=== PATIENT | female | born 1985 | race Two or more races ===

== ENCOUNTER 2016-10-20 14:17 | Outpatient (CLI) | payer MEDICAID | END 2016-10-20 23:59 | DX: Z13.9 Encounter for screening, unspecified (principal) ==

== ENCOUNTER 2016-10-27 09:17 | Outpatient (CLI) | payer MEDICAID | END 2016-10-27 09:18 | disposition home or self-care (01) | DX: R74.8 Abnormal levels of other serum enzymes (principal) ==

== ENCOUNTER 2017-12-22 07:44 | Outpatient (CLI) | payer MEDICAID ==
[2017-12-22 14:10] LABS: ALBUMIN 4.1 g/dL (3.2-5.5); BILIRUBIN,DIRECT 0.1 mg/dL (0.1-0.5); BILIRUBIN,TOTAL 0.8 mg/dL (0.2-1.0); TOTAL PROTEIN 7.5 g/dL (6.7-8.2)
== END 2017-12-22 07:45 | disposition home or self-care (01) ==
LOC: LAB.N 07:44
PROVIDERS: ATTEND Nurse Practitioner Gerontology
DX: R74.8 Abnormal levels of other serum enzymes (principal)
CPT/HCPCS: 36415; 80076

== ENCOUNTER 2019-09-10 14:17 | Emergency (ER) | payer MEDICAID ==
[2019-09-10 14:43] LABS: RAPID STREP SCREEN Negative (Negative)
--- NOTE | 2019-09-10 16:33 | ED Physician Documentation ---
PD HPI URI - Stated complaint Stated Complaint: SORE THROAT/OMAR EAR PX - Chief complaint Chief Complaint: Heent - History obtained from History obtained from: Patient - History of Present Illness Timing - onset: How many days ago (5-6) Timing details: Gradual onset, Still present (worse the past 2 days) Associated symptoms: Fever (mild), Sore throat, Swollen nodes. No: Nasal congestion, Dry cough Contributing factors: No: Sick contact, Travel, Immunocompromised Recently seen: Not recently seen Review of Systems Constitutional: reports: Fever Nose: denies: Rhinorrhea / runny nose Throat: reports: Sore throat, Swollen tonsils. denies: Oral lesions / sores Respiratory: denies: Cough PD PAST MEDICAL HISTORY - Past Medical History Past Medical History: No - Past Surgical History Past Surgical History: No - Present Medications Home Medications: Ambulatory Orders Medication Instructions Recorded Confirmed Amoxicillin 500 mg PO TID #20 capsule 09/10/19 dexAMETHasone [Decadron] 4 mg PO DAILY #5 tablet 09/10/19 - Allergies Allergies/Adverse Reactions: Allergies Allergy/AdvReac Type Severity Reaction Status Date / Time No Known Drug Allergies Allergy Verified 09/10/19 14:26 - Social History Does the pt smoke?: No Smoking Status: Never smoker Does the pt drink ETOH?: No Does the pt have substance abuse?: No - Immunizations Immunizations are current?: Yes PD ED PE NORMAL - Vitals Vital signs reviewed: Yes - General General: Alert and oriented X 3, No acute distress, Well developed/nourished - HEENT HEENT: No: Pharynx benign (redness and swelling of tonsils, with faint exudate left side. No peritonsillar edema. ) - Neck Neck: Supple, no meningeal sign, Other (anterior adenopathy) - Cardiac Cardiac: RRR, No murmur - Respiratory Respiratory: Clear bilaterally - Neuro Neuro: Alert and oriented X 3, No motor deficit, Normal speech Results - Vitals Vitals: Vital Signs - 24 hr 09/10/19 09/10/19 09/10/19 14:27 16:00 17:06 Temperature 37.2 C 36.6 C Heart Rate 103 H 69 75 Respiratory 18 18 16 Rate Blood Pressure 141/83 H 132/74 H 130/75 O2 Saturation 98 99 99 Oxygen O2 Source Room air - Labs Labs: Laboratory Tests 09/10/19 14:30 Group A Strep Rapid Negative PD MEDICAL DECISION MAKING - ED course Complexity details: considered differential (clinically suspicious for bacterial pharyngitis. ), d/w patient Departure - Departure Disposition: 01 Home, Self Care Clinical Impression: Acute pharyngitis Qualifiers: Pharyngitis/tonsillitis etiology: unspecified etiology Qualified Code(s): J02.9 - Acute pharyngitis, unspecified Condition: Stable Record reviewed to determine appropriate education?: Yes Instructions: ED Strep Pharyngitis Poss Prescriptions: Amoxicillin 500 mg PO TID #20 capsule dexAMETHasone [Decadron] 4 mg PO DAILY #5 tablet Comments: Stay well-hydrated. Ibuprofen or naproxen 2-3 times a day for fevers and pains. Decadron steroid anti-inflammatory daily for the next several days to reduce inflammation. Amoxicillin 3 times a day as directed. I would anticipate improvement over the next several days. Recheck if not improved during that time and resolved within 4 to 5 days. Discharge Date/Time: 09/10/19 17:07
[2019-09-10] MEDS ORDERED: DEXAMETHASONE 10 MG/ML VIAL PO STA (16:39)
[2019-09-10] MEDS ORDERED: CHERRY SYRUP 10 ML UDC PO ONE (16:39)
[2019-09-10] MEDS ORDERED: IBUPROFEN 600 MG TABLET PO STA (16:39)
[2019-09-10] MEDS ORDERED: AMOXICILLIN 250 MG CAPSULE PO STA (16:39)
[2019-09-10 17:07] VITALS: BP 130/75
== END 2019-09-10 17:07 | disposition home or self-care (01) ==
LOC: ED 14:17
DX: J02.9 Acute pharyngitis, unspecified (principal)
CPT/HCPCS: 87070; 87430; 99283; A9270

== ENCOUNTER 2019-11-21 07:00 | Outpatient (CLI) | payer MEDICAID ==
[2019-11-21 10:54] LABS: MUDS CUTOFF CONCENTRATIONS CUTOFF CONC BELOW:
[2019-11-21 18:12] LABS: BASOPHILS % (AUTO) 0.4 %; EOSINOPHILS # (AUTO) 0.1 10^3/uL (0.0-0.7); EOSINOPHILS % (AUTO) 1.4 %; HGB - HEMOGLOBIN 13.3 g/dL (12.0-16.0); LYMPHOCYTES # (AUTO) 2.3 10^3/uL (1.5-3.5); LYMPHOCYTES % (AUTO) 23.1 %; MEAN CORPUSCULAR HGB CONC 32.9 g/dL (32.0-36.0); MEAN CORPUSCULAR VOLUME 94.2 fL (81.0-99.0); MEAN PLATELET VOLUME 9.6 fL (7.9-10.8); MONOCYTES # (AUTO) 0.5 10^3/uL (0.0-1.0); MONOCYTES % (AUTO) 4.8 %; NEUTROPHILS # (AUTO) 6.8 10^3/uL (1.5-6.6); NEUTROPHILS % (AUTO) 69.7 %; PLT - PLATELET COUNT 329 10^3/uL (130-450); RED BLOOD COUNT 4.29 10^6/uL (4.20-5.40); RED CELL DISTRIBUTION WIDTH 13.7 % (12.0-15.0); WHITE BLOOD COUNT 9.8 x10^3/uL (4.8-10.8)
[2019-11-21 18:34] LABS: HB2 TOTAL 13.7 g/dL; HEMOGLOBIN A1C 0.47 g/dL; HEMOGLOBIN A1C % 5.3 % (4.6-6.2)
[2019-11-21 18:37] LABS: BILIRUBIN,URINE NEGATIVE (NEGATIVE); GLUCOSE, URINE (UA) NEGATIVE (NEGATIVE); KETONES,URINE (UA) NEGATIVE (NEGATIVE); LEUKOCYTE ESTERASE, URINE SMALL (NEGATIVE); NITRITE,URINE NEGATIVE (NEGATIVE); OCCULT BLOOD,URINE TRACE-INTA (NEGATIVE); PH,URINE 6.5 PH (5.0-7.5); PROTEIN,URINE NEGATIVE (NEGATIVE); UROBILINOGEN,URINE 0.2 (NORMAL) E.U./dL (NORMAL)
[2019-11-21 18:52] LABS: AMORPHOUS SEDIMENT,UR Moderate /LPF; BACTERIA,URINE Few /HPF (None Seen); CLARITY,URINE CLEAR (CLEAR); RBC,URINE 0-5 /HPF (0-5); SQUAMOUS EPITHELIAL CELL,UR MOD Squamous (<= Few)
[2019-11-21 18:56] LABS: AMPHETAMINE SCREEN,URINE NEGATIVE (NEGATIVE); BENZODIAZEPINES SCREEN, URINE NEGATIVE (NEGATIVE); COCAINE SCREEN URINE NEGATIVE (NEGATIVE); METHADONE SCREEN, URINE NEGATIVE (NEGATIVE); METHAMPHETAMINES SCREEN, URINE NEGATIVE (NEGATIVE); OPIATE SCREEN, URINE NEGATIVE (NEGATIVE); OXYCODONE SCREEN, URINE NEGATIVE (NEGATIVE); PROPOXYPHENE SCREEN, URINE NEGATIVE (NEGATIVE); TRICYCLIC ANTIDEPRESSANT,URINE NEGATIVE (NEGATIVE)
[2019-11-22 10:55] LABS: HIV AG/AB 4TH GEN NON-REACTIVE (NON-REACTIVE)
[2019-11-22 13:35] LABS: HEPATITIS B SURFACE ANTIGEN NON-REACTIVE (NON-REACTIVE)
== END 2019-11-21 23:59 | disposition home or self-care (01) ==
LOC: LAB.WCP 07:00
PROVIDERS: ATTEND Obstetrics & Gynecology
DX: Z36.89 Encounter for other specified antenatal screening (principal); Z86.32 Personal history of gestational diabetes; O09.299 Supervision of pregnancy with other poor reproductive or obstetric history, unspecified trimester
CPT/HCPCS: 36415; 80306; 81001; 81511; 81599; 82950; 83036; 84443; 85025; 86592; 86762; 86850; 86900; 86901; 87086; 87340; 87389; 87522

== ENCOUNTER 2019-12-03 14:19 | Outpatient (CLI) | payer MEDICAID ==
--- NOTE | 2019-12-03 17:14 | Ultrasound Report ---
Reason: SUPERVISION OF Procedure Date: 12/03/2019 Accession Number: [id number] / [id number] Procedure: US - OB Detailed Eval CPT Code: Final Report FULL RESULT: PROCEDURE: OB Detailed Eval INDICATIONS: SUPERVISION OF OUTSIDE/PRIOR DATING DATA: Last menstrual period (LMP): 08/05/2019. LMP-based estimated date of delivery (VIELKA): 05/11/2020. First dating scan (date and location): 12/03/2019. Estimated date of delivery (VIELKA) from first dating scan: 05/11/2020. TECHNIQUE: Real-time scanning was performed of the fetus, with image documentation and biometric measurements. COMPARISON: None. FINDINGS: General: A single living intrauterine gestation is present. Presentation: Variable Placenta: Placental position is posterior, without previa. Amniotic fluid index: Within normal limits, largest pocket measuring 5 cm . heart rate: 145 beats per minute. Maternal cervical canal: 3.7 cm long; normal length is 2.5 cm or more. biometrics: Biparietal diameter: 4 cm 18 weeks 1 day Head circumference: 15 cm 18 weeks 0 days Abdominal circumference: 12 cm 17 weeks 5 days Femur length: 2.6 cm 18 weeks 0 days Estimated gestational age from initial scan: not applicable. Composite gestational age from present scan: 18 weeks 0 days Estimated weight and percentile: 2 15 g, 88th percentile Measurement variability in biometric dating: +/- 10 days from 12-20 weeks gestation, +/- 2 weeks from 20-30 weeks gestation, +/- 3 weeks at 30 weeks gestation or later. Anatomic survey: Neuro: Suboptimally visualized. Nuchal skin fold: Normal at less than 6 mm between 14 and 20 weeks gestational age. Face: Nose and lips, facial profile are not well seen. Spine: Suboptimally visualized. Heart: 4-chambered heart and ventricular outflow tracts are not well visualized. Diaphragm: Diaphragm is intact. Stomach: Left-sided stomach is present. Kidneys: No hydronephrosis. Normal is less than 5 mm in 2nd trimester, less than 7 mm in 3rd trimester. Cord: 3 vessel cord has orthotopic insertion. Bladder: Normal in size. Extremities: All 4 extremities are visualized. IMPRESSION: 1. Single live intrauterine with ultrasound gestational age of 18 weeks 0 days corresponding to ultrasound VIELKA of 05/11/2020. 2. Suboptimal visualization of intracranial structures as well as spine, facial profile as well as 4 chambered heart and outflow tracts. Recommend interval imaging follow-up for additional evaluation. Reviewed by: Jennifer Peacock MD on 12/03/2019 5:13 PM PDT Approved by: Jennifer Peacock MD on 12/03/2019 5:13 PM PDT Station ID: [id number]
== END 2019-12-03 14:20 | disposition home or self-care (01) ==
LOC: DI 14:19
PROVIDERS: ATTEND Obstetrics & Gynecology
DX: O09.292 Supervision of pregnancy with other poor reproductive or obstetric history, second trimester (principal); Z3A.18 18 weeks gestation of pregnancy; Z86.32 Personal history of gestational diabetes
CPT/HCPCS: 76811

== ENCOUNTER 2019-12-26 11:53 | Outpatient (CLI) | payer MEDICAID ==
--- NOTE | 2019-12-26 17:04 | Ultrasound Report ---
PROCEDURE: OB F/U or Repeat INDICATIONS: MULTIGRAVIDA OUTSIDE/PRIOR DATING DATA: Last menstrual period (LMP): 08/05/2019. LMP-based estimated date of delivery (VIELKA): 05/11/2020. First dating scan (date and location): 12/03/2019. Estimated date of delivery (VIELKA) from first dating scan: 07/11/2019. TECHNIQUE: Real-time scanning was performed of the fetus, with image documentation and biometric measurements. COMPARISON: OB ultrasound 12/03/2019 FINDINGS: General: A single living intrauterine gestation is present. Presentation: Transverse Placenta: Placental position is posterior, without previa. Amniotic fluid index: 15 cm, 58 percentile for gestational age. Largest pocket 4.9 cm heart rate: 139 beats per minute. Maternal cervical canal: 4.6 cm long; normal length is 2.5 cm or more. Other: Repeat evaluation of the spine, facial profile, four-chamber heart and outflow tracts are with in normal limits. IMPRESSION: 1. Single live intrauterine with ultrasound gestational age of 20 weeks 3 days. 2. Spine, facial profile, four-chamber heart and outflow tracts are within normal limits. Reviewed by: Jennifer Peacock MD on 12/26/2019 5:03 PM PDT Approved by: Jennifer Peacock MD on 12/26/2019 5:03 PM PDT Station ID: [id number]
== END 2019-12-26 11:54 | disposition home or self-care (01) ==
LOC: DI 11:53
PROVIDERS: ATTEND Obstetrics & Gynecology
DX: Z34.80 Encounter for supervision of other normal pregnancy, unspecified trimester (principal)
CPT/HCPCS: 76816

== ENCOUNTER 2020-03-02 11:44 | Outpatient (CLI) | payer MEDICAID ==
[2020-03-02 13:22] LABS: HGB - HEMOGLOBIN 11.6 g/dL (12.0-16.0); MEAN CORPUSCULAR HEMOGLOBIN 30.2 pg (27.0-31.0); MEAN CORPUSCULAR VOLUME 91.4 fL (81.0-99.0); MEAN PLATELET VOLUME 9.3 fL (7.9-10.8); RED BLOOD COUNT 3.84 10^6/uL (4.20-5.40); RED CELL DISTRIBUTION WIDTH 13.4 % (12.0-15.0); WHITE BLOOD COUNT 9.6 x10^3/uL (4.8-10.8)
== END 2020-03-02 11:45 | disposition home or self-care (01) ==
LOC: LAB 11:44
PROVIDERS: ATTEND Obstetrics & Gynecology
DX: Z34.80 Encounter for supervision of other normal pregnancy, unspecified trimester (principal)
CPT/HCPCS: 36415; 82950; 85027

== ENCOUNTER 2020-03-05 07:56 | Outpatient (CLI) | payer MEDICAID | END 2020-03-05 07:57 | disposition home or self-care (01) | LOC: LAB 07:56 | PROVIDERS: ATTEND Obstetrics & Gynecology | DX: O99.810 Abnormal glucose complicating pregnancy (principal) | CPT/HCPCS: 36415; 82951; 82952 ==

== ENCOUNTER 2020-04-01 11:48 | Outpatient (CLI) | payer MEDICAID ==
[2020-04-01 13:13] VITALS: BP 132/73
--- NOTE | 2020-04-01 18:05 | PROCEDURE REPORT ---
- HPI Diagnosis/Indication for NST: Gestational Diabetes Current EDU 05/11/20 Gestation 34 Weeks and 2 Days 5 Para 4 Vital Signs Temperature 98.2 F 04/01/20 13:10 Heart Rate 85 04/01/20 13:10 Respiratory Rate 16 04/01/20 13:10 Blood Pressure 132/73 H 04/01/20 13:10 O2 Saturation 97 04/01/20 13:10 Temperature 98.2 F 04/01/20 13:10 Heart Rate 85 04/01/20 13:10 Respiratory Rate 16 04/01/20 13:10 Blood Pressure 132/73 H 04/01/20 13:10 O2 Saturation 97 04/01/20 13:10 - NST Procedure NST Procedure Start Date 04/01/20 Start Time 12:00 Stop Time 13:09 Vibroacoustic Stimulation Used No Patient States Movement Yes - Results and Plan Findings/Impression: Category 1 NST [place] neg Continue surveillance
== END 2020-04-01 13:20 | disposition home or self-care (01) ==
LOC: WFO 11:48 → FBP 11:54 → WFO 13:20
PROVIDERS: ATTEND Obstetrics & Gynecology
DX: O24.419 Gestational diabetes mellitus in pregnancy, unspecified control (principal); Z3A.34 34 weeks gestation of pregnancy
CPT/HCPCS: 59025

== ENCOUNTER 2020-04-09 14:28 | Outpatient (CLI) | payer MEDICAID ==
[2020-04-09 15:08] VITALS: BP 146/108
--- NOTE | 2020-04-19 10:52 | PROCEDURE REPORT ---
- HPI Diagnosis/Indication for NST: Gestational Diabetes Current EDU 05/11/20 Gestation 35 Weeks and 3 Days 5 Para 4 Vital Signs Temperature 99.0 F 04/09/20 14:42 Heart Rate 102 H 04/09/20 14:42 Respiratory Rate 18 04/09/20 14:42 Blood Pressure 134/81 H 04/09/20 14:42 O2 Saturation 100 04/09/20 14:42 Temperature 99.0 F 04/09/20 14:42 Heart Rate 88 04/09/20 15:00 Respiratory Rate 18 04/09/20 14:42 Blood Pressure 146/108 H 04/09/20 15:01 O2 Saturation 100 04/09/20 14:42 - NST Procedure NST Procedure Start Date 04/09/20 Start Time 14:39 Stop Time 15:40 Vibroacoustic Stimulation Used No Patient States Movement Yes EFM 135 mod ana 15x15 accels no decels TOCO: quiet - Results and Plan Findings/Impression: 34 yo at 35+2 wga with GDM here for NST Cat I tracing Cont with twice weekly NST and weekly FARTUN Not informed of elevated blood pressures priorto DC Normal BPs in clinic to date Will fu with patient Cont with twice weekly NST and weekly FARTUN
== END 2020-04-09 17:30 | disposition home or self-care (01) ==
LOC: WFO 14:28 → FBP 14:31 → WFO 17:30
PROVIDERS: ATTEND Obstetrics & Gynecology
DX: O24.419 Gestational diabetes mellitus in pregnancy, unspecified control (principal); Z3A.35 35 weeks gestation of pregnancy

== ENCOUNTER 2020-04-10 17:33 | Outpatient (CLI) | payer MEDICAID ==
--- NOTE | 2020-04-10 18:49 | Ultrasound Report ---
PROCEDURE: OB F/U or Repeat INDICATIONS: GESTATIONAL DIABETES OUTSIDE/PRIOR DATING DATA: Last menstrual period (LMP): 08/05/2019. LMP-based estimated date of delivery (VIELKA): 05/11/2020. First dating scan (date and location): OB ultrasound dated 12/03/2019. Estimated date of delivery (VIELKA) from first dating scan: 05/11/2020. TECHNIQUE: Real-time scanning was performed of the fetus, with image documentation and biometric measurements. Endovaginal scanning: Not performed COMPARISON: None. FINDINGS: General: A single living intrauterine gestation is present. Presentation: Vertex Placenta: Placental position is posterior, without previa. Amniotic fluid index: 8.6 cm, 7.7% for gestational age. heart rate: 163 beats per minute. Maternal cervical canal: Not well characterized. biometrics: Biparietal diameter: 8.6 cm, 34 weeks, 6 days Head circumference: 31.8 cm, 35 weeks 5 days Abdominal circumference: 31.3 cm, 35 weeks 2 days Femur length: 6.6 cm, 34 weeks 0 days Estimated gestational age from initial scan: 35 weeks, 4 days Composite gestational age from present scan: 35 weeks, 0 days Estimated weight and percentile: 2544 g, 30.5 percentile Measurement variability in biometric dating: +/- 10 days from 12-20 weeks gestation, +/- 2 weeks from 20-30 weeks gestation, +/- 3 weeks at 30 weeks gestation or more. Other: The chest/diaphragm, stomach/abdomen, bilateral renal regions, and the urinary bladder have a normal sonographic appearance. IMPRESSION: 1. Single live intrauterine gestation with a composite gestational age of 35 weeks, 0 days which is c oncordant with dates by initial scan. 2. Normal sonographic anatomy of the chest/diaphragm, stomach/abdomen, bilateral renal regions, and urinary bladder. Reviewed by: Dorita Barajas MD on 04/10/2020 6:48 PM PDT Approved by: Dorita Barajas MD on 04/10/2020 6:48 PM PDT Station ID: [id number]
== END 2020-04-10 17:34 | disposition home or self-care (01) ==
LOC: DI 17:33
PROVIDERS: ATTEND Obstetrics & Gynecology
DX: O24.419 Gestational diabetes mellitus in pregnancy, unspecified control (principal); Z3A.35 35 weeks gestation of pregnancy
CPT/HCPCS: 76816

== ENCOUNTER 2020-04-13 16:51 | Outpatient (CLI) | payer MEDICAID ==
[2020-04-13 18:23] VITALS: BP 129/86
--- NOTE | 2020-04-19 11:27 | PROCEDURE REPORT ---
- HPI Diagnosis/Indication for NST: Gestational Diabetes Current EDU 05/11/20 Gestation 36 Weeks and 0 Days 5 Para 4 Vital Signs Temperature 99.0 F 04/13/20 17:00 Heart Rate 91 04/13/20 17:00 Respiratory Rate 17 04/13/20 17:00 Blood Pressure 129/86 H 04/13/20 17:00 Temperature 99.0 F 04/13/20 17:00 Heart Rate 91 04/13/20 17:00 Respiratory Rate 17 04/13/20 17:00 Blood Pressure 129/86 H 04/13/20 17:00 O2 Saturation - NST Procedure NST Procedure Start Date 04/13/20 Start Time 17:00 Stop Time 15:40 Vibroacoustic Stimulation Used No Patient States Movement Yes EFM 135 mod ana 15x15 accels no decel TOCO: Q4-5; mild - Results and Plan Findings/Impression: 34 yo at 36+0 wga with complicated by GDM here for NST Cat I tracing [place] with CTX; patient not feeling them Cont with twice weekyl NST and weekly FARTUN IOL at 39 wga
== END 2020-04-13 17:43 | disposition home or self-care (01) ==
LOC: WFO 16:51 → FBP 16:55 → WFO 17:43
PROVIDERS: ATTEND Obstetrics & Gynecology
DX: O24.419 Gestational diabetes mellitus in pregnancy, unspecified control (principal); Z3A.36 36 weeks gestation of pregnancy
CPT/HCPCS: 59025

== ENCOUNTER 2020-04-16 08:00 | Outpatient (CLI) | payer MEDICAID | END 2020-04-16 23:59 | disposition home or self-care (01) | LOC: LAB.R 08:00 | PROVIDERS: ATTEND Obstetrics & Gynecology | DX: Z36.85 Encounter for antenatal screening for Streptococcus B (principal) | CPT/HCPCS: 87797 ==

== ENCOUNTER 2020-04-16 14:46 | Outpatient (CLI) | payer MEDICAID ==
--- NOTE | 2020-04-16 21:51 | Ultrasound Report ---
PROCEDURE: OB Biophysical Profile INDICATIONS: GESTATIONAL DM OUTSIDE/PRIOR DATING DATA: Last menstrual period (LMP): 08/05/2019. LMP-based estimated date of delivery (VIELKA): 05/11/2020. First dating scan (date and location): 12/03/2019. Estimated date of delivery (VIELKA) from first dating scan: 05/11/2020. TECHNIQUE: Real-time scanning was performed of the fetus, with image documentation and biometric charis surements. Biophysical profile was also obtained. Endovaginal scanning: Not performed COMPARISON: 04/10/2020. FINDINGS: General: A single living intrauterine gestation is present. Presentation: Cephalic Placenta: Placental position is posterior, without previa. Amniotic fluid index: 11.1 cm, normal for gestational age. heart rate: 175 beats per minute. Maternal cervical canal: Not well seen; normal length is 2.5 cm or more. Estimated gestational age from initial scan: 36 weeks 3 days Measurement variability in biometric dating: +/- 10 days from 12-20 weeks gestation, +/- 2 weeks from 20-30 weeks gestation, +/- 3 weeks at 30 weeks gestation or later. Biophysical profile: Tone: 2 points. Movement: 2 points. Respiration: 2 points. Largest pocket of fluid: 2 points. Umbilical artery Doppler: S/D ratio measures up to 3 at placenta level, 2.9 at mid umbilical artery, and up to 4 at the level of abdomen which is at the upper limits of normal. IMPRESSION: 1. Single live intrauterine with fetus in vertex presentation. Normal amount of amniotic fl uid on the current study with FARTUN measures 11.1 cm. heart rate is elevated at 1 75 bpm. 2. biophysical profile score is 8 out of 8. 3. Borderline elevated umbilical artery S/D ratio as above. Reviewed by: Cuba Tafoya MD on 04/16/2020 9:49 PM PDT Approved by: Cuba Tafoya MD on 04/16/2020 9:49 PM PDT Station ID: [id number]
== END 2020-04-16 14:47 | disposition home or self-care (01) ==
LOC: DI 14:46
PROVIDERS: ATTEND Obstetrics & Gynecology
DX: O24.414 Gestational diabetes mellitus in pregnancy, insulin controlled (principal); Z3A.36 36 weeks gestation of pregnancy
CPT/HCPCS: 76819

== ENCOUNTER 2020-04-16 16:22 | Outpatient (CLI) | payer MEDICAID ==
[2020-04-16 17:15] VITALS: BP 135/73
--- NOTE | 2020-04-19 11:24 | PROCEDURE REPORT ---
- HPI Diagnosis/Indication for NST: Gestational Diabetes Current EDU 05/11/20 Gestation 36 Weeks and 3 Days 5 Para 4 Vital Signs Temperature 98.2 F 04/16/20 17:11 Heart Rate 99 04/16/20 17:11 Respiratory Rate 20 04/16/20 17:11 Blood Pressure 135/73 H 04/16/20 17:11 Temperature 98.2 F 04/16/20 17:11 Heart Rate 99 04/16/20 17:11 Respiratory Rate 04/16/20 17:11 Blood Pressure 135/73 H 04/16/20 17:11 O2 Saturation - NST Procedure NST Procedure Start Date 04/16/20 Start Time 16:33 Stop Time 16:58 Vibroacoustic Stimulation Used No Patient States Movement Yes EFM 135 mod ana 15x15 accels no decels TOCO: intermittent - Results and Plan Findings/Impression: Patient is a 34 yo at 36+3 wga with complicated by GDM here for NST CAT I tracing Cont with twice weekly NST and weekly FARTUN IOL at 39 wga
== END 2020-04-16 17:21 | disposition home or self-care (01) ==
LOC: WFO 16:22 → FBP 16:25 → WFO 17:21
PROVIDERS: ATTEND Obstetrics & Gynecology
DX: O24.414 Gestational diabetes mellitus in pregnancy, insulin controlled (principal); Z3A.36 36 weeks gestation of pregnancy
CPT/HCPCS: 59025; 76819; 87797

== ENCOUNTER 2020-04-23 12:36 | Outpatient (CLI) | payer MEDICAID ==
--- NOTE | 2020-04-23 16:17 | Ultrasound Report ---
PROCEDURE: OB Biophysical Profile INDICATIONS: GESTATIONAL DIABETES OUTSIDE/PRIOR DATING DATA: Last menstrual period (LMP): 08/05/2019. LMP-based estimated date of delivery (VIELKA): 05/11/2020. First dating scan (date and location): 12/03/2019. Estimated date of delivery (VIELKA) from first dating scan: 05/11/2020. TECHNIQUE: Real-time scanning was performed of the fetus, with image documentation and biometric charis surements. Biophysical profile was also obtained. Endovaginal scanning: Not performed COMPARISON: 04/16/2020 FINDINGS: General: A single living intrauterine gestation is present. Presentation: Vertex Placenta: Placental position is posterior, without previa. Amniotic fluid index: 11.2 cm, 27th percentile for gestational age. heart rate: 140 beats per minute. Maternal cervical canal: Not able to be measured secondary to advanced gestational age and pos itioning. The internal cervical os appears closed. Visualized portions of the chest, diaphragm, stomach, abdomen, kidneys, and urinary bladder blair ear unremarkable. Biophysical profile: Tone: 2 points. Movement: 2 points. Respiration: 2 points. Largest pocket of fluid: 2 points. (Largest vertical pocket measured 4.5 cm) Umbilical artery Doppler: S/D ratio measured 2.6 at the placenta, 2.5 at the mid cord, and 2.3 at th e abdominal cord insertion. Normal Doppler waveforms. IMPRESSION: Single living intrauterine gestation with estimated gestational age of approximately 37 weeks and 3 d ays. Interval growth has occurred. Biophysical profile score of 8 out of 8. Largest vertical fluid pocket measured 4.5 cm. Normal S/D ratios for gestational age with normal cord Doppler waveforms. Reviewed by: Rodrigo Lam MD on 04/23/2020 4:16 PM PDT Approved by: Rodrigo Lam MD on 04/23/2020 4:16 PM PDT Station ID: [id number]
== END 2020-04-23 12:37 | disposition home or self-care (01) ==
LOC: DI 12:36
PROVIDERS: ATTEND Obstetrics & Gynecology
DX: O24.414 Gestational diabetes mellitus in pregnancy, insulin controlled (principal); Z3A.37 37 weeks gestation of pregnancy
CPT/HCPCS: 76819

== ENCOUNTER 2020-04-23 13:31 | Outpatient (CLI) | payer MEDICAID ==
[2020-04-23 16:49] VITALS: BP 127/82
--- NOTE | 2020-04-23 19:15 | PROCEDURE REPORT ---
- HPI Diagnosis/Indication for NST: Gestational Diabetes Current EDU 05/11/20 Gestation 37 Weeks and 3 Days 5 Para 4 Vital Signs Temperature 99.1 F 04/23/20 15:00 Heart Rate 73 04/23/20 15:00 Respiratory Rate 18 04/23/20 15:00 Blood Pressure 127/82 H 04/23/20 15:00 Temperature 99.1 F 04/23/20 15:00 Heart Rate 73 04/23/20 15:00 Respiratory Rate 18 04/23/20 15:00 Blood Pressure 127/82 H 04/23/20 15:00 O2 Saturation - NST Procedure NST Procedure Start Date 04/23/20 Start Time 13:49 Stop Time 14:15 Vibroacoustic Stimulation Used No Patient States Movement Yes EFM 135 mod ana 15x15 accels no decels TOCO: Q8 min Cat I tracing - Results and Plan Findings/Impression: 34 yo at 37+3 wga with affected by GDM here for NST Had been checked in clinic and was 4cm but no active labor NST Cat I Repeat SVE 4; unchanged from prior exam Warning signs reviewed Discharged to home
== END 2020-04-23 16:10 | disposition home or self-care (01) ==
LOC: WFO 13:31 → FBP 13:33 → WFO 16:10
PROVIDERS: ATTEND Obstetrics & Gynecology
DX: O24.419 Gestational diabetes mellitus in pregnancy, unspecified control (principal); Z3A.37 37 weeks gestation of pregnancy
CPT/HCPCS: 59025; 99211; 99213

== ENCOUNTER 2020-04-25 01:26 | Outpatient (CLI) | payer MEDICAID | END 2020-04-25 01:27 | disposition critical access hospital (66) | LOC: EMS 01:26 | PROVIDERS: ATTEND Surgery | DX: O99.891 Other specified diseases and conditions complicating pregnancy (principal); M54.5 Low back pain; Z3A.36 36 weeks gestation of pregnancy | CPT/HCPCS: A0425; A0429; A0999 ==

== ENCOUNTER 2020-04-25 01:48 | Inpatient (IN) | payer MEDICAID ==
[2020-04-25] MEDS ORDERED: OXYTOCIN 10 UNIT/ML VIAL IM ONE (02:05)
[2020-04-25] MEDS ORDERED: OXYTOCIN/SODIUM CHLORIDE 500 ML IV PRN (02:10)
[2020-04-25] MEDS ORDERED: miSOPROStoL 200 MCG TABLET ONE (02:12)
[2020-04-25] MEDS ORDERED: OXYTOCIN/SODIUM CHLORIDE 500 ML IV ONE (02:12)
[2020-04-25] MEDS ORDERED: OXYTOCIN 10 UNIT/ML VIAL ONE (02:12)
[2020-04-25] MEDS ORDERED: diphenhydrAMINE 25 MG CAPSULE PO PRN (02:29)
--- NOTE | 2020-04-25 02:34 | DELIVERY NOTE ---
Delivery Note - Labor Labor: positive: Spontaneous - Delivery Method Delivery Method: positive: Spontaneous vaginal delivery - Presentation Presentation: positive: Vertex, FERDINAND - right occiput anterior - Nuchal Cord Nuchal Cord: positive: None (BANDOLEAR) - Amniotic Fluid Description Amniotic Fluid Description: positive: Clear - Episiotomy Type Episiotomy Type: positive: None - Laceration Laceration: positive: None - Delivery Outcome Delivery Outcome: positive: Livebirth - [place] : positive: Placed in direct skin contact with mother, Bulb syringe, Stimulated [place] sex: positive: Male : APGARS 9/9 - Cord Cord: positive: 3 vessels - Placenta Placenta: positive: Intact, Spontaneous - Post Delivery Events Post Delivery Events: positive: No post delivery events
[2020-04-25 02:42] LABS: BASOPHILS % (AUTO) 0.3 %; EOSINOPHILS # (AUTO) 0.1 10^3/uL (0.0-0.7); EOSINOPHILS % (AUTO) 0.6 %; HGB - HEMOGLOBIN 13.4 g/dL (12.0-16.0); LYMPHOCYTES # (AUTO) 4.8 10^3/uL (1.5-3.5); MEAN CORPUSCULAR HEMOGLOBIN 28.7 pg (27.0-31.0); MEAN CORPUSCULAR HGB CONC 33.1 g/dL (32.0-36.0); MEAN CORPUSCULAR VOLUME 86.7 fL (81.0-99.0); MEAN PLATELET VOLUME 10.2 fL (7.9-10.8); MONOCYTES # (AUTO) 0.7 10^3/uL (0.0-1.0); MONOCYTES % (AUTO) 5.4 %; NEUTROPHILS # (AUTO) 7.6 10^3/uL (1.5-6.6); NEUTROPHILS % (AUTO) 57.2 %; PLT - PLATELET COUNT 317 10^3/uL (130-450); RED BLOOD COUNT 4.67 10^6/uL (4.20-5.40); RED CELL DISTRIBUTION WIDTH 14.6 % (12.0-15.0); WHITE BLOOD COUNT 13.2 x10^3/uL (4.8-10.8)
--- NOTE | 2020-04-25 02:58 | DELIVERY NOTE ---
Delivery Note - Labor Labor: positive: Spontaneous - Delivery Method Delivery Method: positive: Spontaneous vaginal delivery - Presentation Presentation: positive: Vertex, FERDINAND - right occiput anterior - Nuchal Cord Nuchal Cord: positive: None (Bandolear) - Amniotic Fluid Description Amniotic Fluid Description: positive: Clear - Episiotomy Type Episiotomy Type: positive: None - Laceration Laceration: positive: None - Delivery Outcome Delivery Outcome: positive: Livebirth - [place] : positive: Placed in direct skin contact with mother, Bulb syringe, Stimulated [place] sex: positive: Male : Apgars 9/9 - Cord Cord: positive: 2 vessels - Placenta Placenta: positive: Intact, Spontaneous - Estimated Blood Loss Estimated Blood Loss (in cc): 200 - Post Delivery Events Post Delivery Events: positive: No post delivery events - Delivery Comments (Free Text/Narrative) Delivery Comments (Free Text/Narrative): Pt awakened at 0100 with labor. ambulance summoned and she arrived at the hospital at 0143. I was called at home at 0146. Pt SROMed with clear fluid at 0200. Pt delivered by nurse at 0202. Live male with apgars of 9/9. I delivered the placenta at 0208. it was inspected and noted to be intact. She was intact without lacerations. EBL was 200 ml.
[2020-04-25] MEDS: IBUPROFEN 800 MG TABLET PO SCH ×4 (03:00→23:02)
[2020-04-25] MEDS: ACETAMINOPHEN 500 MG TABLET PO SCH ×3 (03:01→19:46)
--- NOTE | 2020-04-25 04:32 | PREOP HISTORY & PHYSICAL ---
DATE OF SERVICE: 04/25/2020 Physician: Tc Fernandez MD IDENTIFICATION: The patient is a 34-year-old G5, P4 female whose due date was determined to be 05/11. This makes her 37 weeks 5 days. CHIEF COMPLAINT: Active labor. HISTORY OF PRESENT ILLNESS: The patient developed strong uterine contractions at 0100 this morning. She called an ambulance to bring her to the hospital and arrived here at 0143. She was checked at 0 150, at which time she was noted to be 10, 100%, and 0 station. She spontaneously ruptured her membr anes at 0200 and at 0202, delivered a live male infant with Apgars 9 and 9 over an intact perineum. The placenta followed at 0208. It was inspected and felt to be intact. PAST MEDICAL HISTORY: The patient started her OB care at 15 weeks EGA. Of note was the fact that cassidy barney had gestational diabetes with her last . Her STI check was noted to be negative. Her 50 gram Glucola was noted to be 155 and she failed her 3-hour GTT also. She was placed on metformin for control. The remainder of her labs were negative for any STIs. She was noted to be O positive. PAST MEDICAL HISTORY: Gestational diabetes. PAST SURGICAL HISTORY: None. HABITS: The patient denies use of alcohol, tobacco or street or addictive drugs. 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 FAMILY HISTORY: Unremarkable. PHYSICAL EXAMINATION HEENT: Pupils are equal, round. Extraocular muscles are intact. NECK: Thyroid is not palpably enlarged. HEART: Regular rate and rhythm without murmurs. LUNGS: Lung mcbride are clear. GENITORECTAL: The patient is just status post delivery. Her perineum shows no lacerations and there is no active bleeding. IMPRESSION 1. A 34-year-old 5, para 4 with history of rapid labors. 2. Spontaneous vaginal delivery. 3. Gestational diabetes, which was well controlled on oral agents. PLAN: We will take care of the patient in the period. She is noted to be group B positiv e; therefore, the infant will need to stay for 2 days. TD: 04/25/2020 03:04
[2020-04-25] MEDS: oxyCODONE 5 MG TABLET PO PRN ×3 (07:44→23:04)
[2020-04-25] MEDS: LACTATED RINGERS 1,000 ML IV SCH ×2 (09:45→15:41)
[2020-04-25] MEDS: DOCUSATE SODIUM 100 MG CAPSULE PO SCH ×2 (10:30→19:46)
[2020-04-26] MEDS: oxyCODONE 5 MG TABLET PO PRN ×5 (02:46→21:19)
[2020-04-26] MEDS: ACETAMINOPHEN 500 MG TABLET PO SCH ×3 (04:57→21:18)
[2020-04-26] MEDS: IBUPROFEN 800 MG TABLET PO SCH ×4 (04:57→23:31)
[2020-04-26] MEDS: DOCUSATE SODIUM 100 MG CAPSULE PO SCH ×2 (08:23→21:19)
--- NOTE | 2020-04-26 11:33 | PROVIDER PROGRESS NOTE ---
Subjective - Prog Note Date Prog Note Date: 04/26/20 Prog Note Time: 11:31 - Subjective Pt reports feeling: Worse (Pain 4-8/10. worse with moving and breast feeding. Pt is smileing and moving well) Objective - Vital Signs/Intake & Output Reviewed Vital Signs: Yes Vital Signs: Vital Signs x48h Temp Pulse Resp BP BP Pulse Ox 04/26/20 08:45 36.8 C 99 17 134/81 H 100 04/26/20 04:52 37.2 C 72 14 115/66 98 Intake & Output: Intake & Output 04/23/20 04/24/20 04/25/20 04/26/20 23:59 23:59 23:59 23:59 Intake Total 500 Balance 500 - Objective General Appearance: positive: Alert, Mild distress (right lower quadrent pain and tenderness no rebound) Extremities: positive: Calf tenderness, Michelle's sign/cords Neurologic/Psychiatric: positive: Oriented x3 - Lab Results Fish Bones: 04/25/20 02:00 Assessment/Plan - Problem List (1) (spontaneous vaginal delivery) Impression: Pt had perciptious delivery. C/o right lower quadrent pain and tenderness responding to pain medication
[2020-04-27] MEDS: oxyCODONE 5 MG TABLET PO PRN ×2 (02:49→09:29)
[2020-04-27] MEDS: IBUPROFEN 800 MG TABLET PO SCH (05:16)
[2020-04-27] MEDS: ACETAMINOPHEN 500 MG TABLET PO SCH (05:17)
[2020-04-27] MEDS ORDERED: MEASLES,MUMPS & RUBELLA VACC 0.5 ML VIAL SUBQ ONE (08:15)
--- NOTE | 2020-04-27 08:47 | PROVIDER PROGRESS NOTE ---
Subjective - Prog Note Date Prog Note Date: 04/27/20 Prog Note Time: 08:45 - Subjective Pt reports feeling: Improved (Pain in the right lowert quadrent. worse with motion. comes and goes. breast feeding.) Objective - Vital Signs/Intake & Output Reviewed Vital Signs: Yes Intake & Output: Intake & Output 04/24/20 04/25/20 04/26/20 04/27/20 23:59 23:59 23:59 23:59 Intake Total 500 Balance 500 - Objective General Appearance: positive: No acute distress, Alert Abdomen: positive: Non-tender, Tenderness (right round ligamend) Extremities: negative: Calf tenderness, Michelle's sign/cords - Lab Results Fish Bones: 04/25/20 02:00 Assessment/Plan - Problem List (1) (spontaneous vaginal delivery) Impression: excellent progress Send home. Discharge meds: Oxycodone 5mg #10 Motrin home supply RTC 1 week
--- NOTE | 2020-04-27 08:50 | Discharge Plan ---
Discharge Plan Problem Reviewed?: Yes Disposition: Home, Self Care Condition: Good Diet: Regular Shower Restrictions: No Driving Restrictions: Yes (not while taking narcotics) Weight Bearing: Full Weight No Smoking: If you smoke, Please STOP! Call for help.
[2020-04-27 09:29] VITALS: BP 125/66
[2020-04-27] MEDS: DOCUSATE SODIUM 100 MG CAPSULE PO SCH (09:29)
--- NOTE | 2020-04-27 13:55 | Labor Flowsheet ---
Labor Flowsheet Datetime Report Generated by CPN: 04/27/2020 13:55 Datetime: 04/27/2020 09:28 VITAL SIGNS NBP Sys/Emerald/Mean (mmHg): 125 : 66 : 79 Pulse: 94 COMMUNICATION LaborFlag: Labor Datetime: 04/27/2020 09:25 SpO2 (%): 99
--- NOTE | 2020-04-29 22:59 | DISCHARGE SUMMARY ---
Physician: Tc Fernandez MD DATE OF ADMISSION: 04/25/2020 DATE OF DISCHARGE: 04/27/2020 ADMITTING DIAGNOSES 1. A 34-year-old G5, P4 at 37.5 weeks. 2. Precipitous delivery. 3. Gestational diabetes. DISCHARGE DIAGNOSES 1. A 34-year-old G5, P4 at 37.5 weeks. 2. Precipitous delivery. 3. Gestational diabetes. PROCEDURES: Precipitous vaginal delivery. PRESENTING HISTORY: The patient is a 34-year-old G5, P4 female who is 37 weeks 5 days determined by early ultrasound. The evening of delivery, at 0100 hours, she developed strong uterine contractions. She summoned an ambulance and was brought to the hospital at 0143 hours. She was checked at 0150 hours, at which time she was complete, complete and 0 station. The doctor was summoned immediately and she spontaneously ruptured at 0200 hours. At 0202 hours, she delivered a live male , Apgars 9 and 9 over intact perineum. The physician arrived soon thereafter and delivered the placenta. Past medical history is positive for an elevated 50 gram Glucola at 155. She also followed with a 3-hour GTT. She was placed on metformin for control. LABORATORIES: CBC at time of delivery showed a white count of 13.0, hemoglobin was 13.4, hematocrit was 40.5, platelets were 317. She had point of care blood sugar test, which was 112. HOSPITAL COURSE: The patient presented to labor and delivery and delivered very soon after arrival. The physician arrived after delivery of the , but was there ready for the placenta. Her course was unremarkable. Her blood sugars remained normal. She was discharged to home on 04/27/2020. Discharge medications were oxycodone 5 mg #10. She had Motrin at home supply, as well as stool softener. She was instructed to follow up in the clinic in one week. Cautioned regarding mastitis, uterine infection. TD: 04/29/2020 15:23 EFRA
== END 2020-04-27 10:40 | disposition home or self-care (01) | DRG 807 ==
LOC: FBP 01:48 → WFO 01:48 → FBP 01:58
PROVIDERS: ADMIT Obstetrics & Gynecology; ATTEND Obstetrics & Gynecology
PROC: 10E0XZZ Delivery of Products of Conception, External Approach (ICD-10-PCS; principal; 2020-04-25)
DX: O24.425 Gestational diabetes mellitus in childbirth, controlled by oral hypoglycemic drugs (principal); Z37.0 Single live birth; O62.3 Precipitate labor; O69.89X0 Labor and delivery complicated by other cord complications, not applicable or unspecified; Z3A.37 37 weeks gestation of pregnancy
CPT/HCPCS: 85025; 86850; 86900; 86901; 99213; A9270

== ENCOUNTER 2020-07-13 08:27 | Outpatient (CLI) | payer MEDICAID | END 2020-07-13 08:28 | disposition home or self-care (01) | LOC: LAB 08:27 | PROVIDERS: ATTEND Obstetrics & Gynecology | DX: L28.2 Other prurigo (principal); O90.89 Other complications of the puerperium, not elsewhere classified | CPT/HCPCS: 36415; 82951 ==

== ENCOUNTER 2022-07-28 07:27 | Outpatient (CLI) | payer MEDICAID ==
[2022-07-28 11:53] LABS: BASOPHILS % (AUTO) 0.3 %; EOSINOPHILS # (AUTO) 0.1 10^3/uL (0.0-0.7); EOSINOPHILS % (AUTO) 0.8 %; HGB - HEMOGLOBIN 14.5 g/dL (12.0-16.0); LYMPHOCYTES # (AUTO) 2.7 10^3/uL (1.5-3.5); LYMPHOCYTES % (AUTO) 31.7 %; MEAN PLATELET VOLUME 9.7 fL (7.9-10.8); MONOCYTES # (AUTO) 0.4 10^3/uL (0.0-1.0); MONOCYTES % (AUTO) 4.8 %; NEUTROPHILS # (AUTO) 5.3 10^3/uL (1.5-6.6); NEUTROPHILS % (AUTO) 62.2 %; PLT - PLATELET COUNT 290 10^3/uL (130-450); RED BLOOD COUNT 4.68 10^6/uL (4.20-5.40); RED CELL DISTRIBUTION WIDTH 13.9 % (12.0-15.0); WHITE BLOOD COUNT 8.6 x10^3/uL (4.8-10.8)
[2022-07-28 12:14] LABS: ALBUMIN 4.3 g/dL (3.2-5.5); ALBUMIN/GLOBULIN RATIO 1.3 (1.0-2.2); BILIRUBIN,TOTAL 1.1 mg/dL (0.2-1.0); CALCIUM 8.8 mg/dL (8.5-10.3); CREATININE 0.7 mg/dL (0.4-1.0); POTASSIUM 3.7 mmol/L (3.5-5.0); TOTAL PROTEIN 7.7 g/dL (6.7-8.2)
== END 2022-07-28 07:28 | disposition home or self-care (01) ==
LOC: LAB.N 07:27
PROVIDERS: ATTEND Physician Assistant
DX: B35.1 Tinea unguium (principal); Z79.899 Other long term (current) drug therapy
CPT/HCPCS: 36415; 80053; 85025

== ENCOUNTER 2023-08-09 11:35 | Outpatient (CLI) | payer MEDICAID ==
[2023-08-09 17:44] LABS: BASOPHILS # (AUTO) 0.1 10^3/uL (0.0-0.1); BASOPHILS % (AUTO) 0.8 %; EOSINOPHILS # (AUTO) 0.1 10^3/uL (0.0-0.7); EOSINOPHILS % (AUTO) 1.7 %; HCT - HEMATOCRIT 47.2 % (37.0-47.0); HGB - HEMOGLOBIN 15.4 g/dL (12.0-16.0); LYMPHOCYTES # (AUTO) 2.8 10^3/uL (1.5-3.5); LYMPHOCYTES % (AUTO) 41.9 %; MEAN CORPUSCULAR HGB CONC 32.6 g/dL (32.0-36.0); MEAN PLATELET VOLUME 9.6 fL (7.9-10.8); MONOCYTES # (AUTO) 0.4 10^3/uL (0.0-1.0); MONOCYTES % (AUTO) 5.5 %; NEUTROPHILS # (AUTO) 3.3 10^3/uL (1.5-6.6); NEUTROPHILS % (AUTO) 49.9 %; PLT - PLATELET COUNT 362 10^3/uL (130-450); RED BLOOD COUNT 4.97 10^6/uL (4.20-5.40); RED CELL DISTRIBUTION WIDTH 13.2 % (12.0-15.0); WHITE BLOOD COUNT 6.6 x10^3/uL (4.8-10.8)
[2023-08-09 18:29] LABS: ALBUMIN 4.6 g/dL (3.2-5.5); ALBUMIN/GLOBULIN RATIO 1.4 (1.0-2.2); ALKALINE PHOSPHATASE 48 IU/L (42-121); ALT ALANINE AMINOTRANSFERASE 27 IU/L (10-60); AST ASPARTATE AMINOTRANSFERASE 23 IU/L (10-42); BILIRUBIN,TOTAL 0.7 mg/dL (0.2-1.0); BUN - BLOOD UREA NITROGEN 9 mg/dL (6-20); CALCIUM 9.4 mg/dL (8.5-10.3); CARBON DIOXIDE - CO2 25 mmol/L (21-32); CHLORIDE 105 mmol/L (101-111); CHOL/HDL RATIO 4.2 (<4.4); CHOLESTEROL 221 mg/dL; CREATININE 0.6 mg/dL (0.6-1.3); GFR - MDRD 112 (>89); GLUCOSE 80 mg/dL (74-104); HDL CHOLESTEROL 53 mg/dL; LDL CHOLESTEROL,CALCULATED 141 mg/dL; LDL/HDL RATIO 2.7 (<4.4); POTASSIUM 3.9 mmol/L (3.5-4.5); SODIUM 137 mmol/L (135-145); TOTAL PROTEIN 7.9 g/dL (6.4-8.9); TRIGLYCERIDES 137 mg/dL (48-352); VLDL CHOLESTEROL 27 mg/dL
[2023-08-09 18:43] LABS: THYROID STIMULATING HORMONE 1.14 uIU/mL (0.34-5.60)
== END 2023-08-09 11:36 | disposition home or self-care (01) ==
LOC: LAB.N 11:35
PROVIDERS: ATTEND Physician Assistant
DX: E78.5 Hyperlipidemia, unspecified (principal); Z79.899 Other long term (current) drug therapy; Z13.29 Encounter for screening for other suspected endocrine disorder
CPT/HCPCS: 36415; 80050; 80061; 83721

== ENCOUNTER 2023-08-17 08:00 | Outpatient (CLI) | payer MEDICAID ==
[2023-08-17 12:22] LABS: BILIRUBIN,URINE NEGATIVE (NEGATIVE); GLUCOSE, URINE (UA) NEGATIVE (NEGATIVE); KETONES,URINE (UA) 40 mg/dL (NEGATIVE); LEUKOCYTE ESTERASE, URINE NEGATIVE (NEGATIVE); NITRITE,URINE NEGATIVE (NEGATIVE); OCCULT BLOOD,URINE LARGE (NEGATIVE); PROTEIN,URINE 30 mg/dL (NEGATIVE); UROBILINOGEN,URINE 0.2 (NORMAL) E.U./dL (NORMAL)
[2023-08-17 12:24] LABS: CLARITY,URINE CLOUDY (CLEAR)
[2023-08-17 12:33] LABS: RBC,URINE TNTC /HPF (0-5)
[2023-08-17 12:34] LABS: BACTERIA,URINE Rare /HPF (None Seen); SQUAMOUS EPITHELIAL CELL,UR RARE Squamous (<= Few)
== END 2023-08-17 23:59 | disposition home or self-care (01) ==
LOC: LAB.N 08:00
PROVIDERS: ATTEND Physician Assistant
DX: R31.0 Gross hematuria (principal)
CPT/HCPCS: 81001; 81003; 87086

== ENCOUNTER 2023-08-30 12:05 | Outpatient (CLI) | payer MEDICAID ==
[2023-08-30 17:42] LABS: BILIRUBIN,URINE NEGATIVE (NEGATIVE); CLARITY,URINE HAZY (CLEAR); GLUCOSE, URINE (UA) NEGATIVE (NEGATIVE); KETONES,URINE (UA) NEGATIVE (NEGATIVE); LEUKOCYTE ESTERASE, URINE TRACE (NEGATIVE); NITRITE,URINE NEGATIVE (NEGATIVE); OCCULT BLOOD,URINE LARGE (NEGATIVE); PROTEIN,URINE TRACE mg/dL (NEGATIVE); UROBILINOGEN,URINE 0.2 (NORMAL) E.U./dL (NORMAL)
[2023-08-30 18:13] LABS: BACTERIA,URINE Rare /HPF (None Seen); RBC,URINE TNTC /HPF (0-5); SQUAMOUS EPITHELIAL CELL,UR FEW Squamous (<= Few); WBC,URINE 0-3 /HPF (0-5)
== END 2023-08-30 12:06 | disposition home or self-care (01) ==
LOC: LAB.N 12:05
PROVIDERS: ATTEND Physician Assistant
DX: R31.0 Gross hematuria (principal)
CPT/HCPCS: 81001; 87086

== ENCOUNTER 2023-10-09 14:47 | Outpatient (CLI) | payer MEDICAID ==
--- NOTE | 2023-10-09 16:48 | Ultrasound Report ---
PROCEDURE: Renal (Retroperitoneal) INDICATIONS: GROSS HEMATURIA TECHNIQUE: Real-time scanning was performed of the retroperitoneal organs, with image documentation. COMPARISON: Ultrasound 12/03/2019. FINDINGS: Kidneys: Kidneys are normal in size. Right kidney measures 12.1 cm long; left kidney measures 12.2 cm long. Right renal cortical thickness is 1.0 cm; left renal cortical thickness is 0.2 cm. No andreina d masses, hydronephrosis, or nephrolithiasis. Extrarenal pelvis on the right. Bladder: Pre-void bladder volume is 274 mL. Post-void residual is 26 mL. Pre-void images demonstra te no intraluminal masses or stones. On pre-void images, both ureteral jets are noted with color Dop pler interrogation. (Of note, ureteral jets may not be detectable in up to 25% of cases due to insuf ficient differences in specific gravity between ureteral and bladder urine). Miscellaneous: No free abdominal fluid. IMPRESSION: No sonographic abnormality. No large nephrolithiasis or hydronephrosis. Reviewed by: Erik Valdes MD on 10/09/2023 4:46 PM PDT Approved by: Erik Valdes MD on 10/09/2023 4:46 PM PDT Station ID: [id number]
== END 2023-10-09 14:48 | disposition home or self-care (01) ==
LOC: DI 14:47
PROVIDERS: ATTEND Urology
DX: R31.0 Gross hematuria (principal)